=== PATIENT | male | born 1985 | race Caucasian/White ===

== ENCOUNTER 2019-02-23 20:58 | Emergency (ER) | payer BC ==
[2019-02-23] MEDS ORDERED: Lidocaine 1% 30 ML SDV ONE (21:35)
[2019-02-23 23:02] LABS: ANION GAP 14.8; CHLORIDE,CL 106 mmol/L (101-111); SODIUM,NA 140 mmol/L (135-145)
--- NOTE | 2019-02-23 23:37 | EDM.PDOC ---
ED HPI GENERAL MEDICAL PROBLEM - General Chief Complaint: Head Injury Stated Complaint: AMBULANCE Time Seen by Provider: 02/23/19 21:15 Source of Information: Reports: Patient, EMS History Limitations: Reports: No Limitations - History of Present Illness INITIAL COMMENTS - FREE TEXT/NARRATIVE: ED via [facility], patient admits to drinking today, fell going down basement stairs and hit head against brick wall at end of stairs approximately 5pm tonight. Patient denies loss of consciousness, EMS noted that girlfriend said he was " out briefly". Denies neck or back pain, No nausea or vomiting since incident. Laceration to top of head covered with pressure bandage. 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 [No Known Home Meds] 02/23/19 [History] Past Medical History - Past Health History Medical/Surgical History: Denies Medical/Surgical History Social & Family History - Family History Family Medical History: Noncontributory - Tobacco Use Smoking Status *Q: Current Every Day Smoker Years of Tobacco use: 17 Packs/Tins Daily: 10 - Caffeine Use Caffeine Use: Reports: Coffee - Alcohol Use Date of Last Drink: 02/23/19 - Recreational Drug Use Recreational Drug Use: No ED ROS GENERAL - Review of Systems Review Of Systems: ROS reveals no pertinent complaints other than HPI. ED EXAM, HEAD INJURY - Physical Exam Exam: See Below Exam Limited By: No Limitations General Appearance: Alert, No Apparent Distress Head: Scalp Lacerations (steliatemid parietal), Scalp Swelling, Scalp Hematoma, Active Bleeding. No: Hicks's Sign, Facial Ecchymosis Nexus Criteria: Evidence of Intoxication. No: Posterior, Midline Cervical Tenderness, Altered Level of Consciousness, Focal Neurological Deficit, Painful Distraction Injuries Eyes: Bilateral Eye: EOMI, Nystagmus (fine horizontal ), PERRL (4mm) Ears: Normal External Exam Nose: Normal Inspection Throat/Mouth: Normal Inspection Neck: Full Range of Motion, Normal Alignment, Normal Inspection Cardiovascular: Normal Peripheral Pulses, Regular Rate, Rhythm GI/Abdominal Exam: Soft Back Exam: No: Paraspinal Tenderness, Vertebral Tenderness Extremities: Normal Inspection, Normal Range of Motion Neurologic: No Motor/Sensory Deficits, Alert, Normal Mood/Affect, Oriented x 3. No: Motor Weakness, Disoriented x 3 - Trevor Coma Score Best Eye Response (Trevor): (4) Open Spontaneously Best Verbal Response (Trevor): (5) Oriented Best Motor Response (Trevor): (6) Obeys Commands Trevor Total: 15 ED LACERATION/WOUND & LATRICE PROC - Laceration/Wound Repair Upper Occipital Head Lac/wound length in cm: 4.5 (irregular edges arterial bleed) Appearance: Subcutaneous, Stellate, Clean Anesthetic Type: Local Local Anesthesia - Lidocaine (Xylocaine): 1% Plain Local Anesthetic Volume: 3cc Skin Prep: Chlorhexidine (Hibiciens), Saline Exploration/Debridement/Repair: Wound Explored Closed with: Sutures, [place] (11) Suture Size: 3-0 Suture Size: 3-0 # of Sutures: 2 Sterile Dressing Applied: Nurse Tetanus Status Addressed: Yes Complications: No Progress/Comments: Large hematomoa formation on presentation, pressure dressing removed, cleansed, reactivation of amall arterial bleed, controlled with sub q suture and pressure , Irregular wound margins approximateld with suture and heidy. Course - Vital Signs Last Recorded V/S: Last Vital Signs Temp 97.7 F 02/23/19 22:52 Pulse 76 02/23/19 22:52 Resp 18 02/23/19 22:52 BP 128/78 02/23/19 22:52 Pulse Ox 97 02/23/19 22:52 - Orders/Labs/Meds Labs: Laboratory Tests 02/23/19 02/23/19 Range/Units 22:30 22:30 WBC 11.1 H (5.0-10.0) 10^3/uL RBC 4.92 (4.6-6.2) 10^6/uL Hgb 15.3 (14.0-18.0) g/dL Hct 45.1 (40.0-54.0) % MCV 91.7 (80-100) fL MCH 31.1 (27.0-34.0) pg MCHC 33.9 (33.0-35.0) g/dL Plt Count 257 (150-450) 10^3/uL Neut % (Auto) 70.4 (42.2-75.2) % Lymph % (Auto) 21.6 (20.5-50.1) % [place] % (Auto) 6.6 (2-8) % Eos % (Auto) 1.3 (1.0-3.0) % Baso % (Auto) 0.1 (0.0-1.0) % Sodium 140 (135-145) mmol/L Potassium 3.8 (3.6-5.0) mmol/L Chloride 106 (101-111) mmol/L Carbon Dioxide 23.0 (21.0-31.0) mmol/L Anion Gap 14.8 BUN 10 (7-18) mg/dL Creatinine 0.7 (0.6-1.3) mg/dL Est Cr Clr Drug Dosing 169.63 mL/min Estimated GFR (MDRD) > 60 BUN/Creatinine Ratio 14.28 Glucose 100 (74-105) mg/dL Calcium 8.7 (8.4-10.2) mg/dl Total Bilirubin 0.6 (0.2-1.0) mg/dL AST 39 (10-42) IU/L ALT 33 (10-60) IU/L Alkaline Phosphatase 49 (42-121) IU/L Total Protein 7.8 (6.7-8.2) g/dl Albumin 4.4 (3.2-5.5) g/dl Globulin 3.4 Albumin/Globulin Ratio 1.29 Ethyl Alcohol 286 mg/dL Meds: Medications Discontinued Medications Generic Name Dose Route Start Last Admin Trade Name Leona PRN Reason Stop Dose Admin Lidocaine HCl Confirm 02/23/19 21:35 02/23/19 21:42 Xylocaine-Mpf 1% Administered 02/23/19 21:36 30 ml Dose Administration 30 ml .ROUTE .STK-MED ONE Departure - Departure Time of Disposition: 23:28 Disposition: Home, Self-Care 01 Condition: Good Clinical Impression: Fall (on) (from) other stairs and steps, initial encounter, Hematoma Scalp laceration Qualifiers: Encounter type: initial encounter Qualified Code(s): S01.01XA - Laceration without foreign body of scalp, initial encounter Alcohol intoxication Qualifiers: Complication of substance-induced condition: uncomplicated Qualified Code(s): F10.920 - Alcohol use, unspecified with intoxication, uncomplicated - Discharge Information *PRESCRIPTION DRUG MONITORING PROGRAM REVIEWED*: No *COPY OF PRESCRIPTION DRUG MONITORING REPORT IN PATIENT JAMAAL: No Instructions: Head Injury, Adult, [id number], Stitches, Heidy, or Adhesive Wound Closure, [id number] Referrals: PCP,None [Primary Care Provider] - Forms: ED Department Discharge Additional Instructions: head injury instructions ice to scalp tonight light activity tomorrow tylenol 650mg every 4 hours as needed for discomfort may wash hair tomorrow evening sutures and heidy out in 10 days in clinic
== END 2019-02-23 23:54 | disposition home or self-care (01) ==
LOC: EDSEX → DL.ED 20:58
DX: S01.01XA Laceration without foreign body of scalp, initial encounter (principal); F10.920 Alcohol use, unspecified with intoxication, uncomplicated; F17.210 Nicotine dependence, cigarettes, uncomplicated; W10.9XXA Fall (on) (from) unspecified stairs and steps, initial encounter; Y90.8 Blood alcohol level of 240 mg/100 ml or more
CPT/HCPCS: 12002; 36415; 70450; 72125; 80053; 85025; 99284; G0480; J2001